=== PATIENT | female | born 1950 | race Caucasian/White ===

== ENCOUNTER 2018-07-05 05:46 | Inpatient (IN) | payer MEDICARE ==
[~2018-07-05] VITALS: Ht 157.5 cm; Wt 93.0 kg
[2018-07-05] MEDS ORDERED: IV NORMAL SALINE 1,000ML 1,000 ML IV SCH (06:07)
[2018-07-05] MEDS ORDERED: ACETAMINOPHEN 500 MG TABLET PO ONE (06:15)
[2018-07-05] MEDS ORDERED: methylPREDNISolone SOD SUCC PF 125 MG/2 ML VIAL. IV ONE (06:15)
[2018-07-05] MEDS ORDERED: ONDANSETRON PF 4 MG/2 ML VIAL. ONE (06:17)
[2018-07-05 06:27] LABS: BGAS PH 7.47 (7.35-7.45)
[2018-07-05 06:40] LABS: BASO % 0 % (0-3); EOS % 0 % (0-3); HEMATOCRIT 41.2 % (36.0-47.0); HEMOGLOBIN 13.9 g/dL (12.0-15.5); LYMPH # 0.6 x10^3/uL (1.0-4.8); LYMPH % 6 % (24-48); MEAN CORPUSCULAR HEMOGLOBIN 28 pg (25-35); MEAN CORPUSCULAR HGB CONC 34 g/dL (31-37); MEAN CORPUSCULAR VOLUME 84 fL (79-100); MONO # 0.3 x10^3/uL (0.0-1.1); MONO % 4 % (0-9); NEUT # 8.2 x10^3uL (1.8-7.7); NEUT % 89 % (31-73); PLATELET COUNT 242 x10^3/uL (140-400); RED BLOOD COUNT 4.91 x10^6/uL (3.50-5.40); RED CELL DISTRIBUTION WIDTH 14.1 % (11.5-14.5); WHITE BLOOD COUNT 9.2 x10^3/uL (4.0-11.0)
[2018-07-05 06:54] LABS: INFLUENZA A PATIENT NEGATIVE (NEGATIVE); INFLUENZA B PATIENT NEGATIVE (NEGATIVE)
[2018-07-05 06:58] LABS: ALBUMIN 3.9 g/dL (3.4-5.0); CALCIUM 9.3 mg/dL (8.5-10.1); CREATININE 0.8 mg/dL (0.6-1.0); GFR 71.3; POTASSIUM 3.8 mmol/L (3.5-5.1); TOTAL BILIRUBIN 1.9 mg/dL (0.2-1.0); TOTAL PROTEIN 7.8 g/dL (6.4-8.2)
[2018-07-05] MEDS ORDERED: IPRATRPIUM/ALBUTEROL 0.5/2.5MG 3 ML NEBU. NEB ONE (07:00)
[2018-07-05] MEDS ORDERED: ONDANSETRON PF 4 MG/2 ML VIAL. IV ONE (07:00)
[2018-07-05] MEDS ORDERED: IV NORMAL SALINE 1,000ML 1,000 ML IV ONE (07:15)
[2018-07-05] MEDS ORDERED: VANCOMYCIN 2 GM in IV NORMAL SALINE 500ML 500 ML IV ONE (07:30)
[2018-07-05] MEDS ORDERED: IV NORMAL SALINE 50ML 50 ML ONE (07:32)
[2018-07-05] MEDS ORDERED: cefTRIAXone SODIUM 1 GM VIAL ONE (07:32)
--- NOTE | 2018-07-05 07:34 | PHYS DOC ---
Past History Past Medical History: Asthma, High Cholesterol, Hypothyroid Past Surgical History: Cholecystectomy, Other Drug Use: None Adult General Chief Complaint Chief Complaint: SHORTNESS OF BREATH HPI HPI Patient is a 67 year old female who presents with complaining of shortness of breath and cough. Patient has history of asthma and is a resident of [place]. Patient is visiting her mother at [facility] for the last 10 days. Patient complaining of dry cough and shortness of breath for the last 3 days that gradually getting worse. Patient complaining of nasal congestion and generalized pain. Patient complaining of subjective fever since this morning. Patient complaining of pain in right upper back as a discomfort feeling. Patient had temperature of 102.9 in triage. Review of Systems Review of Systems Constitutional: Reports subjective fever and chills Eyes: Denies change in visual acuity, redness, or eye pain [] HENT: Reports nasal congestion] Respiratory: Reports cough and shortness of breath Cardiovascular: No additional information not addressed in HPI [] GI: Denies abdominal pain, nausea, vomiting, bloody stools or diarrhea [] : Denies dysuria or hematuria [] Musculoskeletal: Reports back pain , denies joint pain [] Integument: Denies rash or skin lesions [] Neurologic: Denies headache, focal weakness or sensory changes [] Endocrine: Denies polyuria or polydipsia [] All other systems were reviewed and found to be within normal limits, except as documented in this note. Current Medications Current Medications Current Medications Medications (Trade) Dose Ordered Sig/Rebekah Start Time Stop Time Status Last Admin Dose Admin Acetaminophen (Tylenol) 1,000 mg 1X ONCE 07/05/18 06:15 07/05/18 06:31 DC 07/05/18 06:24 1,000 MG Albuterol/ Ipratropium (Duoneb) 3 ml 1X ONCE 07/05/18 07:00 07/05/18 07:01 DC 07/05/18 06:43 3 ML Ceftriaxone Sodium 1 gm/ Sodium Chloride 50 ml @ 100 mls/hr 1X ONCE 07/05/18 07:30 07/05/18 07:59 Ketorolac Tromethamine (Toradol 30mg Vial) 30 mg 1X ONCE 07/05/18 07:30 07/05/18 07:31 UNV Methylprednisolone Sodium Succinate (SOLU-Medrol 125MG VIAL) 125 mg 1X ONCE 07/05/18 06:15 2/18/19 06:32 DC 07/05/18 06:24 125 MG Ondansetron HCl (Zofran) 4 mg 1X ONCE 07/05/18 07:00 07/05/18 07:01 DC 07/05/18 06:43 4 MG Sodium Chloride 1,000 ml @ 1,000 mls/hr 1X ONCE 07/05/18 07:15 07/05/18 08:14 Vancomycin HCl 2 gm/Sodium Chloride 500 ml @ 250 mls/hr 1X ONCE 07/05/18 07:30 07/05/18 09:29 Allergies Allergies Allergies Coded Allergies Type Severity Reaction Last Updated Verified prednisone Adverse Reaction Intermediate 07/05/18 Yes Physical Exam Physical Exam Constitutional: Well developed, well nourished, mild acute distress, non-toxic appearance, febrile. [] HENT: Normocephalic, atraumatic, bilateral external ears normal, oropharynx moist, no oral exudates, nose normal. [] Eyes: PERRLA, EOMI, conjunctiva normal, no discharge. [] Neck: Normal range of motion, no tenderness, supple, no stridor. [] Cardiovascular:Heart rate regular rhythm, no murmur [] Lungs & Thorax: Mild respiratory distress with wheezing and rhonchi Abdomen: Bowel sounds normal, soft, no tenderness, no masses, no pulsatile masses. [] Skin: Warm, dry, no erythema, no rash. [] Back: No tenderness, no CVA tenderness. [] Extremities: No tenderness, no cyanosis, no clubbing, ROM intact, no edema. [] Neurologic: Alert and oriented X 3, normal motor function, normal sensory function, no focal deficits noted. [] Psychologic: Affect normal, judgement normal, mood normal. [] Current Patient Data Vital Signs Vital Signs Date Time Temp Pulse Resp B/P (MAP) Pulse Ox O2 Delivery O2 Flow Rate FiO2 07/05/18 06:47 96 Nasal Cannula 2.0 07/05/18 05:50 102.9 98 28 Lab Results Laboratory Tests Test 07/05/18 06:05 07/05/18 06:10 07/05/18 06:20 Influenza Type A (Rapid) Negative (NEGATIVE) Influenza Type B (Rapid) Negative (NEGATIVE) Blood pH 7.47 (7.35-7.45) H Blood Gas PCO2 27 mmHg (35-45) L Blood Gas PO2 71 mmHg (80-100) L Blood Gas HCO3 19 mmol/L (22-26) L Arterial Bld O2 Saturation (Calc) 96 % (92-99) FiO2 21 % White Blood Count 9.2 x10^3/uL (4.0-11.0) Red Blood Count 4.91 x10^6/uL (3.50-5.40) Hemoglobin 13.9 g/dL (12.0-15.5) Hematocrit 41.2 % (36.0-47.0) Mean Corpuscular Volume 84 fL (79-100) Mean Corpuscular Hemoglobin 28 pg (25-35) Mean Corpuscular Hemoglobin Concent 34 g/dL (31-37) Red Cell Distribution Width 14.1 % (11.5-14.5) Platelet Count 242 x10^3/uL (140-400) Neutrophils (%) (Auto) 89 % (31-73) H Lymphocytes (%) (Auto) 6 % (24-48) L Monocytes (%) (Auto) 4 % (0-9) Eosinophils (%) (Auto) 0 % (0-3) Basophils (%) (Auto) 0 % (0-3) Neutrophils # (Auto) 8.2 x10^3uL (1.8-7.7) H Lymphocytes # (Auto) 0.6 x10^3/uL (1.0-4.8) L Monocytes # (Auto) 0.3 x10^3/uL (0.0-1.1) Eosinophils # (Auto) 0.0 x10^3/uL (0.0-0.7) Basophils # (Auto) 0.0 x10^3/uL (0.0-0.2) Sodium Level 139 mmol/L (136-145) Potassium Level 3.8 mmol/L (3.5-5.1) Chloride Level 101 mmol/L (98-107) Carbon Dioxide Level 26 mmol/L (21-32) Anion Gap 12 (6-14) Blood Urea Nitrogen 9 mg/dL (7-20) Creatinine 0.8 mg/dL (0.6-1.0) Estimated GFR (Cockcroft-Gault) 71.3 BUN/Creatinine Ratio 11 (6-20) Glucose Level 158 mg/dL (70-99) H Lactic Acid Level 2.2 mmol/L (0.4-2.0) H Calcium Level 9.3 mg/dL (8.5-10.1) Total Bilirubin 1.9 mg/dL (0.2-1.0) H Aspartate Amino Transferase (AST) 19 U/L (15-37) Alanine Aminotransferase (ALT) 27 U/L (14-59) Alkaline Phosphatase 84 U/L (46-116) Troponin I Quantitative < 0.017 ng/mL (0-0.055) SW-Jsp-B-Type Natriuretic Peptide 246 pg/mL (0-124) H Total Protein 7.8 g/dL (6.4-8.2) Albumin 3.9 g/dL (3.4-5.0) Albumin/Globulin Ratio 1.0 (1.0-1.7) EKG EKG EKG interpreted by me. EKG at 0641 showed normal sinus rhythm at rate of 88, abnormal left axis deviation, nonspecific intraventricular block, poor R-wave progress in anteroseptal leads, no acute ST and T-wave abnormalities. Radiology/Procedures Radiology/[place] [address] IMAGING REPORT Signed PATIENT: JAYME SUMMERS ACCOUNT: [id number] : 1950 LOCATION: ER AGE: 67 SEX: F EXAM STATUS: REG ER ORD. PHYSICIAN: BROOKLYN ZHAO MD REASON: SOB PROCEDURE: CHEST PA & LATERAL Chest, 2 views, 07/05/2018: HISTORY: Shortness of breath, asthma The heart size is normal. There is calcific plaquing of the aorta. There is streaky atelectasis or scarring in the right middle lobe. The left lung is clear. No pleural fluid is evident. Mild spurring is present in the spine. IMPRESSION: Mild atelectasis and/or scarring in the right middle lobe. Electronically signed by: Giovanny Matson MD (07/05/2018 7:40 AM) [facility] DICTATED AND SIGNED BY: GIOVANNY MATSON MD DATE: 07/05/18 7985 CC: BROOKLYN ZHAO MD; PCP,NO ~ Course & Med Decision Making Course & Med Decision Making Pertinent Labs and Imaging studies reviewed. (See chart for details) Evaluation of patient in ER showed 67-year-old female patient with history of asthma presented with nasal congestion, cough and shortness of breath. Patient had temperature of 102.9 with O2 sat of 92% at room air. Patient treated with oxygen, DuoNeb, Tylenol, Solu-Medrol and IV fluid improvement of her condition. Patient had elevation of lactic acid at 2.2 and treated with IV antibiotic after obtaining blood culture. X-ray showed right lung infiltration. Plan to admit the patient with diagnosis of sepsis and pneumonia. Dragon Disclaimer Dragon Disclaimer This electronic medical record was generated, in whole or in part, using a voice recognition dictation system. Departure Departure: Impression: Primary Impression: Sepsis Additional Impressions: HCAP (healthcare-associated pneumonia) Respiratory distress Elevated bilirubin Disposition: ADMITTED INPATIENT (At 0726) Admitting Physician: Candice Walden (accepted admission at 0627) Condition: IMPROVED Referrals: PCPJERRY (PCP) Problem Qualifiers BROOKLYN ZHAO MD Jul 05, 2018 07:34
--- NOTE | 2018-07-05 07:43 | RAD ---
Chest, 2 views, 07/05/2018: HISTORY: Shortness of breath, asthma The heart size is normal. There is calcific plaquing of the aorta. There is streaky atelectasis or scarring in the right middle lobe. The left lung is clear. No pleural fluid is evident. Mild spurring is present in the spine. IMPRESSION: Mild atelectasis and/or scarring in the right middle lobe. Electronically signed by: Giovanny Matson MD (07/05/2018 7:40 AM) [facility]
[2018-07-05] MEDS: IV NORMAL SALINE 1,000ML 1,000 ML IV SCH ×2 (07:45→15:34)
[2018-07-05] MEDS ORDERED: KETOROLAC 30 MG/ML VIAL. IV ONE (07:45)
[2018-07-05 09:00] VITALS: BP 139/50
[2018-07-05 12:12] VITALS: BP 110/48
[2018-07-05] MEDS ORDERED: PRAV40TA2 PO (15:18)
[2018-07-05] MEDS ORDERED: AMLODIPINE PO (15:18)
[2018-07-05] MEDS ORDERED: MULT1TAB52 PO (15:18)
[2018-07-05] MEDS ORDERED: OMEG1CAP50 PO (15:18)
[2018-07-05] MEDS ORDERED: LEVO50TA5 PO (15:18)
[2018-07-05] MEDS ORDERED: OLMESARTAN PO (15:18)
[2018-07-05] MEDS ORDERED: ASPI81TA50 PO (15:18)
[2018-07-05] MEDS ORDERED: BUDE10.22 IH (15:18)
[2018-07-05] MEDS ORDERED: ALBU2.5V8 IH (15:18)
[2018-07-05] MEDS ORDERED: ALBUTEROL SULFATE 2.5 MG/3 ML NEBU. ONE (15:21)
[2018-07-05 16:52] VITALS: BP 119/52
[2018-07-05] MEDS ORDERED: AZITHROMYCIN 250 MG TABLET. PO ONE (18:15)
[2018-07-05 19:33] VITALS: BP 131/64
--- NOTE | 2018-07-05 19:43 | HP ---
ADMIT DATE: 07/05/2018 HISTORY OF PRESENT ILLNESS: The patient is a 67-year-old female patient who came to the Emergency Room complaining of shortness of breath, cough. She has history of bronchial asthma and normally she resides at [place] and she came here visiting her mother who was at [facility]. She is complaining of dry cough and shortness of breath for the last 3 days, this has been getting worse. The patient is also complaining of nasal congestion and generalized aches and pains. She has subjective fever. She did also complain her right upper back as a discomfort feeling. When she arrived to the Emergency Room, her temperature was 102.9 in the triage area. She was extensively investigated. Her blood gases showed that she was hyperventilating. She has hypoxic respiratory failure. Her chemistry was unremarkable. White cell count was 9200. Her chest x-ray showed that the patient's heart size is normal. There is calcific plaquing of the aorta. There is streak atelectasis or scarring in the right middle lobe. The left lung is clear, no pleural effusion. Mild spurring is present in the spine. Her influenza A and B were negative. The patient was admitted with acute asthma exacerbation, hypoxic respiratory failure and questionable pneumonia versus bronchopneumonia. The patient was given vancomycin and ceftriaxone and was admitted for further evaluation and treatment. PAST MEDICAL HISTORY: Significant for bronchial asthma, hypertension, hyperlipidemia, hypothyroidism, generalized osteoarthritis, cataracts, and dry eyes. PAST SURGICAL HISTORY: Significant for cholecystectomy and skin lesion removed from her nose and the right shoulder turned out to be benign. ALLERGIES: She is allergic to PREDNISONE. MEDICATIONS: She is currently on following medications: She is on albuterol sulfate 1 puff every 4 hours, pravastatin sodium 40 mg once a day, omega-3 fatty acid 1000 mg daily, aspirin 81 mg once a day, Symbicort 80/4.5 two puffs twice a day, levothyroxine sodium 50 mcg once a day, multivitamin 1 tablet once a day, Norvasc/losartan 10/40 one tablet once a day. FAMILY HISTORY: She has 2 sisters and they are healthy. Her mother is known to have COPD, systemic lupus erythematosus as well as pulmonary fibrosis. SOCIAL HISTORY: She is , has 1 son. She never smoked. Drinks alcohol occasionally. She is retired from [employer]. REVIEW OF SYSTEMS: The patient denied any blurring of vision, cataract, glaucoma, or macular degeneration. Denied any earache, tinnitus, or sensorineural deafness. Denied any nosebleeds, stuffy nose, or postnasal drip. Denied any sore throat or sore tongue. PHYSICAL EXAMINATION: GENERAL: On arrival to the Emergency Room, she was slightly tachypneic, but no pallor, jaundice, cyanosis, or thyromegaly. No jugular venous distension. No lower limb edema. VITAL SIGNS: Her heart rate was 98, blood pressure 115/45, temperature was 102.9, respiratory rate was 28, and oxygen saturation was 91%. HEAD, EYES, EARS, NOSE, AND THROAT: Showed normocephalic, atraumatic. NECK: Supple. HEART: Showed normal first and second heart sounds. No gallop, rub, or murmur. CHEST: Showed central trachea, equally reduced expansion. ____ scattered rhonchi. I could not appreciate any crepitation. ABDOMEN: Distended, soft, nontender. NEUROLOGIC: She was awake, alert, responding appropriately. Her cranial nerves are intact. EXTREMITIES: She moves extremities without difficulty. LABORATORY DATA AND IMAGING: Her lab work showed that her white cell count was 9200, hemoglobin 14, hematocrit 41, MCV 84 and platelet count 242,000. Her chemistry showed a serum sodium 139, potassium 3.8, chloride 101, bicarbonate 26, anion gap of 13, BUN 9, creatinine 0.8, estimated GFR was 71 mL per minute. Her glucose 158, calcium was 9.3. Total bilirubin 1.9. AST, ALT, alkaline phosphatase were normal. Total protein was 7.8, albumin 3.9. Her blood gas showed a pH of 7.47, pCO2 of 27, pO2 of 71, bicarbonate 19 and oxygen saturation was 96% on FiO2 of 21%. Her influenza A and B were negative. Her chest x-ray showed that there are mild atelectasis and scarring in the right middle lobe. PLAN: To continue with IV antibiotic in the form of Rocephin 1 gram once daily. I will add Zithromax. Continue with the Solu-Medrol and nebulized albuterol and Atrovent. Continue with all her other medications and we will follow her closely with her peak flow rate and decide the further management accordingly. JOSTIN RG MD DR: Rhonda JOB#: [id number] / [id number]
[2018-07-05] MEDS: PRAVASTATIN 20 MG TABLET. PO SCH (20:01)
[2018-07-05] MEDS: methylPREDNISolone SOD SUCC PF 40 MG/ML VIAL. IV SCH (20:02)
[2018-07-05] MEDS: OLMESARTAN PO SCH (20:02)
[2018-07-05] MEDS: AMLODIPINE PO SCH (20:02)
[2018-07-05] MEDS: IPRATRPIUM/ALBUTEROL 0.5/2.5MG 3 ML NEBU. NEB SCH (20:34)
[2018-07-05] MEDS ORDERED: NON FORMULARY ITEM PO SCH (21:00)
[2018-07-05 22:30] VITALS: BP 121/52
[2018-07-06] MEDS: IPRATRPIUM/ALBUTEROL 0.5/2.5MG 3 ML NEBU. NEB SCH ×4 (05:09→20:29)
[2018-07-06] MEDS: LEVOTHYROXINE 50 MCG TABLET PO SCH (05:09)
[2018-07-06 05:19] VITALS: BP 140/58
[2018-07-06 06:26] VITALS: BP 100/79
[2018-07-06 06:26] LABS: HEMATOCRIT 37.6 % (36.0-47.0); HEMOGLOBIN 12.5 g/dL (12.0-15.5); RED BLOOD COUNT 4.43 x10^6/uL (3.50-5.40); RED CELL DISTRIBUTION WIDTH 14.5 % (11.5-14.5); WHITE BLOOD COUNT 11.7 x10^3/uL (4.0-11.0)
[2018-07-06 06:44] LABS: ALBUMIN 3.2 g/dL (3.4-5.0); ALBUMIN/GLOBULIN RATIO 0.8 (1.0-1.7); CALCIUM 8.8 mg/dL (8.5-10.1); CREATININE 0.8 mg/dL (0.6-1.0); GFR 71.3; POTASSIUM 3.4 mmol/L (3.5-5.1); TOTAL BILIRUBIN 0.8 mg/dL (0.2-1.0)
[2018-07-06] MEDS ORDERED: POTASSIUM CHLORIDE 20 MEQ TABLET.ER. PO ONE ×2 (08:00→14:15)
[2018-07-06] MEDS: ASPIRIN 81 MG TAB.CHEW PO SCH (08:20)
[2018-07-06] MEDS: MULTIVITAMIN with MINERAL TABLET. PO SCH (08:20)
[2018-07-06] MEDS: LACTOBACILLUS RHAMNOSUS GG 1 CAPSULE. PO SCH ×2 (08:20→20:14)
[2018-07-06] MEDS: OMEGA-3 FATTY ACIDS/FISH OIL 1,000 MG CAPSULE. PO SCH (08:20)
[2018-07-06] MEDS: AZITHROMYCIN 250 MG TABLET. PO SCH (08:20)
[2018-07-06] MEDS: methylPREDNISolone SOD SUCC PF 40 MG/ML VIAL. IV SCH ×2 (08:22→20:14)
[2018-07-06] MEDS ORDERED: AMLODIPINE PO SCH (09:00)
[2018-07-06] MEDS ORDERED: OLMESARTAN PO SCH (09:00)
[2018-07-06 11:03] VITALS: BP 111/45
[2018-07-06] MEDS ORDERED: BENZOCAINE/MENTHOL LOZNGE 18'S BOX. PO PRN (19:00)
[2018-07-06] MEDS: AMLODIPINE PO SCH (20:14)
[2018-07-06] MEDS: OLMESARTAN PO SCH (20:14)
[2018-07-06] MEDS: PRAVASTATIN 20 MG TABLET. PO SCH (20:14)
[2018-07-06 23:40] VITALS: BP 114/64
--- NOTE | 2018-07-07 00:11 | PN ---
DATE: 07/06/2018 SUBJECTIVE: The patient is sitting comfortably in her chair, in no apparent respiratory distress. She is awake, alert. She continued to have cough with yellowish sputum, but her chest tightness and wheezing is much improved. Her oxygen was 94% on room air. OBJECTIVE: GENERAL: When I examined her, she looked well and was clearly in no apparent respiratory distress, pale, but no jaundice, cyanosis, or thyromegaly. No jugular venous distension. No lower limb edema. VITAL SIGNS: Her heart rate was 88, blood pressure 111/45, temperature was 98.4, respiratory rate was 20 and oxygen saturation was 94% on room air. HEAD, EYES, EARS, NOSE AND THROAT: Showed normocephalic, atraumatic. NECK: Supple. HEART: Showed normal first and second heart sounds. No gallop, rub or murmur. CHEST: Clear to auscultation. No crepitation or rhonchi. Chest showed central trachea, equally reduced expansion, reduced air entry, vesicular breath sounds with few scattered rhonchi, could not appreciate any crepitation. ABDOMEN: Distended, soft, nontender. NEUROLOGIC: She is awake, alert, responding appropriately. All cranial nerves intact. She moves extremities without difficulty. She ambulates without assistance or assistive devices. LABORATORY DATA: Her lab work this morning showed a serum sodium 142, potassium 3.4, chloride 106, bicarbonate 24, anion gap of 12, BUN 15, creatinine 0.8. Estimated GFR was 71 mL per minute. Her glucose 195. Calcium was 8.8. Total bilirubin, AST, ALT, alkaline phosphatase were normal. Total protein was 7, albumin was 3.2. Her white cell count of 11,700, hemoglobin 12.5, hematocrit 37, MCV 85 and platelet count 231,000. Her influenza A and B were negative. Her nasal screen for MRSA PCR was negative. ASSESSMENT: Acute hypoxic respiratory failure, acute asthma exacerbation, acute bronchitis versus bronchopneumonia. Other medical problems include hypertension, hyperlipidemia, hypothyroidism and generalized osteoarthritis and plan is to continue with IV steroids, continue with IV antibiotic in the form of ceftriaxone as well as Zithromax. Continue with nebulized treatment. Monitor her lab work. She has hypokalemia for which she received 40 mEq of potassium chloride and when she remains stable, she can be discharged home to continue with oral steroids as well as antibiotics. JOSTIN RG MD DR: JULIUS/reji JOB#: [id number] / [id number]
[2018-07-07 05:00] VITALS: BP 131/53
[2018-07-07] MEDS: IPRATRPIUM/ALBUTEROL 0.5/2.5MG 3 ML NEBU. NEB SCH ×3 (05:17→15:22)
[2018-07-07] MEDS: LEVOTHYROXINE 50 MCG TABLET PO SCH (05:35)
[2018-07-07 06:47] LABS: CALCIUM 8.8 mg/dL (8.5-10.1); CREATININE 0.7 mg/dL (0.6-1.0); GFR 83.2; POTASSIUM 4.2 mmol/L (3.5-5.1)
[2018-07-07] MEDS: LACTOBACILLUS RHAMNOSUS GG 1 CAPSULE. PO SCH (09:41)
[2018-07-07] MEDS: OMEGA-3 FATTY ACIDS/FISH OIL 1,000 MG CAPSULE. PO SCH (09:41)
[2018-07-07] MEDS: ASPIRIN 81 MG TAB.CHEW PO SCH (09:41)
[2018-07-07] MEDS: methylPREDNISolone SOD SUCC PF 40 MG/ML VIAL. IV SCH (09:41)
[2018-07-07] MEDS: MULTIVITAMIN with MINERAL TABLET. PO SCH (09:41)
[2018-07-07] MEDS: AZITHROMYCIN 250 MG TABLET. PO SCH (09:41)
[2018-07-07 10:33] VITALS: BP 111/55
[2018-07-07] MEDS ORDERED: AZIT250T PO (15:48)
[2018-07-07] MEDS ORDERED: CEFP200T PO (15:48)
[2018-07-07 15:55] VITALS: BP 125/62
--- NOTE | 2018-07-07 18:31 | DS ---
DATE OF DISCHARGE: 07/07/2018 HOSPITAL COURSE: The patient is a 67-year-old female patient who was admitted with acute hypoxic respiratory failure, has also fever, temperature of 102.9. Her chest x-ray showed possible bronchopneumonia and the patient was admitted with acute asthma exacerbation and hypoxic respiratory failure. She was started with IV Solu-Medrol, IV antibiotic in the form of Rocephin and Zithromax and nebulizer, albuterol and Atrovent. She did actually very well. When I saw her today, she was resting, almost flat in bed, in no apparent distress. She was not using any accessory muscles. She was able to complete her sentences without difficulty and she was afebrile. PHYSICAL EXAMINATION: GENERAL: When I examined her, she looked well and was clearly in no apparent respiratory distress. No pallor, jaundice, cyanosis, or thyromegaly. No jugular venous distension. No lower limb edema. VITAL SIGNS: Her heart rate was 88, blood pressure was 111/55, temperature was 98.2, respiratory rate 20 and oxygen saturation was 95% on room air. HEENT: Examination of the head, eyes, ears, nose and throat showed normocephalic, atraumatic. NECK: Supple. HEART: Showed normal first and second heart sounds. No gallop, rub or murmur. CHEST: Shows central trachea, equal bilateral expansion air entry, vesicular sounds, very few scattered rhonchi, much improved compared to admission. I could not appreciate any crepitation. ABDOMEN: Distended, soft, nontender. NEUROLOGIC: She is awake, alert, responding appropriately. Her Cranial nerves are intact. EXTREMITIES: She moves extremities without difficulty. She ambulates without assistance or assistive devices. LABORATORY DATA: her lab work showed a white cell count of 11,700, hemoglobin 12.5, hematocrit 37.6, MCV was 85 and platelet count 231,000. Her chemistry this morning showed a serum sodium 142, potassium 4.2, chloride 108, bicarbonate 23, anion gap of 11, BUN 18, creatinine was 0.7, estimated GFR was 83 mL per minute. Her glucose 168 and calcium was 8.8. DISCHARGE MEDICATIONS: She was discharged home to continue on her azithromycin 250 mg once a day for 7 days, cefpodoxime proxetil 200 mg twice a day, tapering course of steroid in the form prednisone 40 mg once a day for 3 days, 30 mg once a day for 3 days, 20 mg once a day for 3 days, and 10 mg once a day for 3 days. She should continue albuterol sulfate 2 inhalation every 4 hours, aspirin 81 mg once a day, Symbicort 2 puffs twice a day, levothyroxine sodium 50 mcg daily, multivitamin 1 tablet once a day, Norvasc/olmesartan 10/40 one tablet once a day, Donovan-3 fatty acid 1000 mg soft gel daily, and pravastatin sodium 40 mg at bedtime. FINAL DISCHARGE DIAGNOSES: Acute hypoxic respiratory failure, improved. She is now maintaining her oxygen saturation at 95% on room air, acute asthma exacerbation, much improved, acute bronchopneumonia. She is afebrile. Her white cell count is down. Other medical problems include hypertension, hyperlipidemia, hypothyroidism, generalized osteoarthritis. JOSTIN RG MD DR: JULIUS/reji JOB#: [id number] / [id number]
--- NOTE | 2018-07-08 11:48 | EKG ---
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
== END 2018-07-07 16:37 | disposition home or self-care (01) | DRG 871 ==
LOC: ER 05:46 → ICU 07:27 → 1 SOUTH 07-06 16:55
PROVIDERS: ADMIT Internal Medicine; ATTEND Internal Medicine
DX: A41.9 Sepsis, unspecified organism (principal); J18.0 Bronchopneumonia, unspecified organism; J96.01 Acute respiratory failure with hypoxia; J45.901 Unspecified asthma with (acute) exacerbation; E03.9 Hypothyroidism, unspecified; E78.00 Pure hypercholesterolemia, unspecified; E78.5 Hyperlipidemia, unspecified; E87.6 Hypokalemia; I10 Essential (primary) hypertension; M15.9 Polyosteoarthritis, unspecified; Y95 Nosocomial condition; Z82.5 Family history of asthma and other chronic lower respiratory diseases; Z90.49 Acquired absence of other specified parts of digestive tract; Z88.8 Allergy status to other drugs, medicaments and biological substances
CPT/HCPCS: 36415; 36600; 71046; 80048; 80053; 82803; 83605; 83880; 84484; 85025; 85027; 87040; 87070; 87641; 87804; 87880; 93005; 94640; 96361; 96365; 96368; 96375; G0238; J0456; J0696; J1885; J2405; J2920; J2930; J3370; J7040; J7613; J7620; 99285-25; J7030